=== PATIENT | female | born 1985 | race Caucasian/White ===

== ENCOUNTER 2020-06-15 15:29 | Emergency (ER) | payer MEDICAID, OTHER, SELFPAY ==
[~2020-06-15] VITALS: Ht 165.1 cm; Wt 75.5 kg
[2020-06-15 15:48] VITALS: BP 119/73
--- NOTE | 2020-06-15 16:26 | NUR ---
Patient/Caregiver given discharge instructions and they have confirmed that they understand the instructions. Patient ambulatory with steady gait.
== END 2020-06-15 16:27 | disposition home or self-care (01) ==
LOC: ED 16:12
DX: B30.9 Viral conjunctivitis, unspecified (principal); H57.13 Ocular pain, bilateral
CPT/HCPCS: 99283